=== PATIENT | male | born 1935 | race Asian ===

== ENCOUNTER 2022-11-16 14:00 | Outpatient (RCR) | payer MEDICARE, SELFPAY ==
[2022-10-02 11:01] VITALS: BP 140/78
--- NOTE | 2022-10-02 12:15 | MHC.PT.EP ---
[facility] [place] Office [place] Office [place] Office [address] Gurdeep Oseguera [address] [phone] F: [phone] F: [phone] F: [phone] F: [phone] Physical Therapy Plan of Care Date of Evaluation: Date of Surgery: Diagnosis: L RTC impingement Assessment: Pt is an R-hand dominant 87 y/o male with PMH significant for HTN and a thoracic compression fracture presenting to the clinic with a script for L RC impingement syndrome. His main compliant is occasional electric shock and spasms of L UE. S/s consistent with occasional impingement as a result of posture. He reports minimal difficulty with carrying, lifting, and maintaining static postures secondary to decreased strength of scapular stabilizers and impaired posture. Recommend PT 1x/week for 4 weeks to address impairments, implement HEP, and optimize functional mobility. Frequency and Duration: The patient will be seen 1x/wk x4wk Short Term Goals: Initiate HEP Pt will demonstrate improved static sitting posture without cues >50% of the time Penitentiary Goals: [place] with HEP Improve SPADI outcome measure score by at least 13 points; initial: 41/130 Pt will report decreased in L UE spasms by >50% per pt report Treatment Plan: Modalities to reduce pain, spasms and effusion. Manual therapy to restore motion and function. Therapeutic exercise to improve strength and flexibility. Neuromuscular re-education for posture and balance. Therapeutic activities to return to functional activities of daily living. Electronically signed by: Gisel Mercado PT Please sign and return to therapist. Thank you for your referral.
--- NOTE | 2022-11-16 14:39 | MHC.PT.DC ---
[facility] [place] Office [place] Office [place] Office [address] Oseguera [address] [phone] F: [phone] F: [phone] F: [phone] F: [phone] Physical Therapy Discharge Report Diagnosis: L RTC impingement Date of Surgery: Date of Evaluation: 10/02/22 Date of Discharge: 11/16/22 Treatments to Date: 4 Cancellations to Date: 0 No Shows to Date: 0 Discharge Status: Improved Function Independent with HEP Discharge Summary: Pt reports feeling better overall with less spasms/ electric shock sensations. He demonstrates improved L shoulder strength and is I with HEP. We reviewed HEP and no further questions at this time. Electronically signed by: iGsel Mercado PT Please sign and return to therapist. Thank you for your referral.
== END 2022-11-16 14:39 | disposition home or self-care (01) ==
LOC: HO.PTCHIC 14:00
PROVIDERS: PCP Internal Medicine; Visit Provider Internal Medicine
DX: M75.42 Impingement syndrome of left shoulder (principal)
CPT/HCPCS: 97110; 97162

== ENCOUNTER → 2023-01-22 12:43 | Outpatient (REF) | payer MEDICARE, SELFPAY ==
--- NOTE | 2023-01-22 12:46 | CA_ITS ---
Transthoracic Echocardiogram Patient (Last, First, Middle): Nickolas Frias Van Gender: Male Date of : 1935 Age: 87 Procedure Date: 01/22/2023 Procedure Type: Transthoracic Echocardiogram Location: OP Height: 162.56 cm Weight: 56.25 kg BSA: 1.60 m2 Heart Rate: 60 bpm BP: 138 / 64 mmHg Customer Service Agent: MARIAM/VENKATA Referring MD: Puma Gay MD Symptoms: I77.810 - Thoracic aortic ectasia Study Quality: Adequate ECG Rhythm: Sinus Conclusions: - The left ventricular systolic function is normal. The calculated ejection fraction is 66% by biplane method. - No obvious valvular pathology seen on this study. - There is mild dilatation of the ascending aorta measuring 4.30 cm. Findings Left Ventricle Normal left ventricular cavity size. The left ventricular systolic function is normal. The calculated ejection fraction is 66% by biplane method. There is no evidence of regional wall motion abnormalities. Diastolic function is normal for age. There is mild septal asymmetric hypertrophy. LV peak GLS 15.7%. Right Ventricle Normal right ventricular cavity size and systolic function. Atria Both atria are normal in size. Aortic Valve There is a normal trileaflet aortic valve. There is no aortic valve stenosis. There is mild aortic valve regurgitation. Mitral Valve The mitral valve appears normal. There is trace mitral valve regurgitation. There is no mitral valve stenosis. Pulmonic Valve The pulmonic valve is likely normal. Tricuspid Valve Normal tricuspid valve structure. There is mild tricuspid valve regurgitation. There is no evidence of pulmonary hypertension. Great Vessels The aortic annulus is normal in size. There is mild dilatation of the ascending aorta measuring 4.30 cm. Venous The inferior vena cava is normal in size and collapses greater than 50% with inspiration. Pericardium/Pleural There is no evidence of pericardial effusion. Prior Study Comparison Changes noted compared to prior study dated: 09/23/2021. Increase in ascending aortic size. Recommendations, Care & Conclusions No obvious valvular pathology seen on this study. Measurements 2D Linear Measurements IVSd: 1.25 0.6-0.9/0.6-1.0 cm LVIDd: 3.74 3.9-5.3/4.2-5.9 cm LVIDd Index: 2.34 2.4-3.2/2.2-3.1 cm/m2 LVIDs: 2.50 2.0-3.6 cm LVPWd: 0.80 0.7-1.1 cm LA Diam: 3.20 2.7-3.8/3.0-4.0 cm LAIDs Index: 2.00 1.5-2.3 cm/m2 LV Mass: 147.36 67-162/88-224 g LV Mass Index: 92.10 43-95/49-115 g/m2 LVOT Diam: 2.10 3.0+(-)1.3 cm 2D Systolic Function EF 4C: 64.60 >55% EF 2C: 63.70 >55% EF BiP: 66.00 >55% Mitral Valve MV Pk E: 0.48 MV PK A: 0.58 MV Decel Time: 361.00 E/A: 0.80 E'Lateral: 7.40 E'Medial: 4.90 E/E' Med: 9.70 E/E' Lat: 6.40 PHT: 106.00 MVA PHT: 2.08 Decel Traill: 1.32 Aortic Valve AoV Pk Titi: 1.18 AoV Pk Grad: 6.00 CURTIS: 2.68 AI Pk Titi: 4.57 AI Traill: 2.10 LVOT LVOT Pk Titi: 0.91 LVOT Mn Titi: 0.66 LVOT VTI: 0.20 LVOT Pk Grad: 3.00 LVOT Mn Grad: 2.00 LVOT Diam: 2.10 LVOT Area: 3.46 Diastolic Function MV Pk E: 0.48 MV Pk A: 0.58 E/A: 0.80 E'Medial: 4.90 E/E' Med: 9.70 E' Laterial: 7.40 E/E' Lat: 6.40 Right Ventricle TAPSE (mm): 22.80 TVS' Titi: 12.10 Tricuspid Valve TR Pk Titi: 2.34 TR Pk Grad: 22.00 RA Press: 3.00 RVSP: 25.00 Great Vessels Aorta Sinus of Valsalva: 3.30 2.0-3.5 cm Ao Asc: 4.30 2.1-3.4 cm Pulmonary Valve PV Pk Titi: 0.77 Peak PV Grad: 2.00 Updated in Other Vendor System with Status of Final Dejon Sepulveda MD electronically signed on 01/24/2023 9:11:48 AM with status of Final
== END ==
LOC: HO.CARD 12:43
PROVIDERS: PCP Internal Medicine; Visit Provider Internal Medicine Cardiovascular Disease
DX: I77.810 Thoracic aortic ectasia (principal)
CPT/HCPCS: 93306; 93356

== ENCOUNTER → 2023-01-22 12:46 | Outpatient (BNV) | payer MEDICARE, SELFPAY | PROVIDERS: PCP Internal Medicine; Visit Provider Internal Medicine | DX: I36.1 Nonrheumatic tricuspid (valve) insufficiency (principal); I77.810 Thoracic aortic ectasia | CPT/HCPCS: 93306 ==

== ENCOUNTER 2023-01-28 10:28 | Outpatient (AMB) | payer MEDICARE, SELFPAY ==
[2023-01-28 10:30] VITALS: BP 130/72; PULSE 64; BMI 21.1
--- NOTE | 2023-01-28 10:30 | A.OFFVIS_ITS ---
Intake Vital Signs 01/28/23 10:30 Height 5 ft 4 in Weight 123 lb 0.287 oz BMI 21.1 BP 130/72 Blood Pressure Location Lt brachial Position Sitting Pulse 64 Pulse Source Pulse Oximeter Intake Visit Reasons: 6 mth f/up echo Regulatory And Compliance Technician: Regulatory And Compliance Technician Present Allergies penicillin G [Penicillin G] Allergy (Mild, Verified 01/28/23 10:33) DIFFICULTY BREATHING Medication List - Last Reconciled 01/28/23 by Joann Leone, BELÉN-C [transfer chair As directed] acetaminophen (Tylenol Extra Strength) 500 mg PO Q6H PRN allopurinol 200 mg (2 x 100 mg) PO DAILY aspirin 81 mg PO DAILY atorvastatin 40 mg PO BEDTIME finasteride 5 mg PO DAILY 90 days isosorbide mononitrate ER 30 mg PO DAILY metoprolol succinate ER 25 mg PO DAILY oxycodone-acetaminophen 5-325 mg 1 tab PO TID PRN pantoprazole 40 mg PO DAILY HPI 6 mth f/up echo HPI Details Nickolas Tracey is an 87-year-old male with past medical history of hyperte nsion, hyperlipidemia, chronic kidney disease, coronary artery disease, dilated ascending aorta who presents for follow-up after recent echocardiogram. Today he reports he has been doing well since his last visit in July. He denies any chest discomfort at rest or with activity. No shortness of breath, PND, orthopnea or edema. No heart palpitations, presyncope, syncope, falls. Taking all meds as directed. Does light physical activity. Family member present. Ukrainian-speaking. [facility]LY [facility] Medical History Anal lesion Left renal stone Pulmonary nodule Chondrocalcinosis Cholelithiasis Hypercholesterolemia Hypertension Compression fx, thoracic spine Anemia BPH (benign prostatic hyperplasia) GERD (gastroesophageal reflux disease) Chronic kidney disease (CKD) stage G3a/A1, moderately decreased glomerular filtration rate (GFR) between 45-59 mL/min/1.73 square meter and albuminuria creatinine ratio less than 30 mg/g Chronic kidney disease Gout Surgical History History of cataract surgery Family History Father No problems noted. Mother No problems noted. Social History Housing: House Alcohol intake: never Patient Tobacco Use Status: Former Tobacco user Quit Date: July 2021 Tobacco use type: Cigarette e-Cigarette/Vaping Use: Never Used Second Hand Smoke Exposure: No Current occupational status: retired Current occupational exposures/hazards: No Cognitive needs: No Hearing needs: No Vision needs: No Review of Systems Const All systems reviewed & are unremarkable except as noted in HPI and below ENT Denies dizziness Card Denies chest pain, Denies chest pain at rest, Denies chest pain with activity, Denies rapid heart rate, Denies pedal edema, Denies edema, Denies leg edema, Denies lightheadedness, Denies palpitations, Denies dyspnea, Denies dyspnea on exertion and Denies orthopnea Resp Denies cough, Denies dyspnea and Denies dyspnea on exertion GI Denies hematochezia and Denies change in stool character Musc Details: knee pain, left Denies abnormal gait, Reports limited range of motion, Denies muscle cramps, Denies muscle weakness, Denies numbness, Denies radiating pain into limb, Denies stiffness and Denies tingling Neuro Denies abnormal gait, Denies dizziness, Denies numbness and Denies tingling Endo Denies palpitations Physical Exam Vital Signs: Last Vital Signs Pulse 64 01/28/23 10:30 BP 130/72 01/28/23 10:30 BMI result Body Mass Index 21.1 Const General: cooperative, healthy appearing, comfortable and no acute distress Orientation/consciousness: patient oriented x3 Neck Neck: Yes normal visual inspection Resp Effort & Inspection: normal respiratory effort Auscultation: clear to auscultation bilaterally, no crackles, no rales, no rhonchi and no wheezes Cardio Jugular venous distension: no JVD Rate: regular rate Rhythm: regular rhythm Heart sounds: S1 normal heart sound present, S2 normal heart sound present, no murmurs and no rubs Neuro General: patient oriented x3 Extrem General: Yes normal to inspection Psych Appearance: grossly normal Mental Status: mental status grossly normal Speech and movement: Normal speech and movement present Assessment & Plan Assessment & Plan (1) Coronary artery disease: Comment: November 2021 moderate stenosis LAD severe stenosis 1st diagonal Code(s): I25.10 - Atherosclerotic heart disease of [place] coronary artery without angina pectoris Plan: Known history of CAD. Condition stable with no reports of anginal sounding symptoms. Cardiac risk factors of hypertension, hyperlipidemia and advanced age. Echocardiogram done 01/22/2023 showing EF 63%, no valve abnormalities, no regional wall motion abnormality, ascending aorta 4.3 cm. Continue on aspirin indefinitely. Continue atorvastatin with ideal LDL goal less than 70. Continue isosorbide and metoprolol XL. Emergency care if ever needed for symptoms. Cardiology follow-up in 6 months, sooner if needed (2) Ascending aorta dilatation: Comment: November 2021 4.1 x 4 cm Code(s): I77.810 - Thoracic aortic ectasia Plan: Echocardiogram done 09/23/2021 shows ascending aorta 4 cm. Echocardiogram done 01/22/2023 shows ascending aorta 4.3 cm. Patient informed. Blood pressure is well controlled. Reviewed with Dr. Gay. Plan for repeat echocardiogram in 1 year, will place order. (3) Hypertension: Code(s): I10 - Essential (primary) hypertension Qualifiers: Hypertension type: essential hypertension Qualified Code(s): I10 - Essential (primary) hypertension Plan: Well controlled at present. No med changes made. Continue isosorbide and metoprolol (4) Hypercholesterolemia: Code(s): E78.00 - Pure hypercholesterolemia, unspecified Plan: [place] LDL goal less than 70 in patient with known history of CAD. Labs done 07/09/2022 showed LDL 87. Prior test had shown LDL 74. Near goal. Instructed on low fat diet and activity as tolerated. He does have issues with joint pain from arthritis. Continue atorvastatin. Plan Time spent on chart review, documentation, interview assess Coding Level of Care Code Est Pt Level 3 (34902) Diagnoses Coronary artery disease I25.10 Ascending aorta dilatation I77.810 Essential hypertension I10 Hypertension type: essential hypertension Hypercholesterolemia E78.00 Time Spent (min) 24
== END 2023-01-28 10:54 | disposition home or self-care (01) ==
PROVIDERS: PCP Internal Medicine; Visit Provider Nurse Practitioner Family
DX: I25.10 Atherosclerotic heart disease of native coronary artery without angina pectoris (principal); I77.810 Thoracic aortic ectasia; I10 Essential (primary) hypertension; E78.00 Pure hypercholesterolemia, unspecified
CPT/HCPCS: 99213

== ENCOUNTER → 2023-01-28 10:28 | Outpatient (BNVA) | payer MEDICARE, SELFPAY | PROVIDERS: PCP Internal Medicine; Visit Provider Nurse Practitioner Family | DX: I25.10 Atherosclerotic heart disease of native coronary artery without angina pectoris (principal); I77.810 Thoracic aortic ectasia; I10 Essential (primary) hypertension; E78.00 Pure hypercholesterolemia, unspecified | CPT/HCPCS: 99212 ==

== ENCOUNTER 2023-02-22 10:29 | Outpatient (AMB) | payer MEDICARE, SELFPAY ==
--- NOTE | 2023-02-22 10:31 | MHC.PC.OV ---
Vital Signs 02/22/23 10:32 Height 5 ft 4 in Weight 120 lb BMI 20.6 BP 126/72 Blood Pressure Location Lt brachial Position Sitting Pulse 66 Pulse Source Pulse Oximeter Pulse Oximetry (%) 95 Oxygen Delivery Method Room Air Intake Visit Reasons: 3 month f/u Allergies penicillin G [Penicillin G] Allergy (Mild, Verified 02/22/23 10:34) DIFFICULTY BREATHING Medication List - Last Reconciled 02/22/23 by Samantha Urbina MD [transfer chair As directed] acetaminophen (Tylenol Extra Strength) 500 mg PO Q6H PRN allopurinol 200 mg (2 x 100 mg) PO DAILY aspirin 81 mg PO DAILY atorvastatin 40 mg PO BEDTIME finasteride 5 mg PO DAILY 90 days isosorbide mononitrate ER 30 mg PO DAILY metoprolol succinate ER 25 mg PO DAILY oxycodone-acetaminophen 5-325 mg 1 tab PO TID PRN pantoprazole 40 mg PO DAILY Tobacco use date assessed: 02/22/23 Fall risk assessment: No Falls in past year Last assessed Fall Risk: 02/22/23 Dental Screening Dental Screen Date: 02/22/23 HPI 3 month f/u HPI Details 87-year-old male with a history of thoracic spine compression fracture on narcotic pain medication has hypertension GERD BPH gout osteoporosis chronic kidney disease and ascending aorta dilatation last seen in October 2022. Patient is here for follow-up. Patient has seen Cardiology 01/28/2023 follow-up echocardiogram January 2023 echocardiogram showing EF 63% no valve abnormalities ascending aorta 4.3 cm. blood work not done yet. hx of years L leg trauma intemittent pain and concern about this and wants xray. discussed aobut vaccine PFSH Medical History Anal lesion Left renal stone Pulmonary nodule Chondrocalcinosis Cholelithiasis Hypercholesterolemia Hypertension Compression fx, thoracic spine Anemia BPH (benign prostatic hyperplasia) GERD (gastroesophageal reflux disease) Chronic kidney disease (CKD) stage G3a/A1, moderately decreased glomerular filtration rate (GFR) between 45-59 mL/min/1.73 square meter and albuminuria creatinine ratio less than 30 mg/g Chronic kidney disease Gout Surgical History History of cataract surgery Family History Father No problems noted. Mother No problems noted. Social History Housing: House Alcohol intake: never Patient Tobacco Use Status: Former Tobacco user Quit Date: July 2021 Tobacco use type: Cigarette e-Cigarette/Vaping Use: Never Used Second Hand Smoke Exposure: No Current occupational status: retired Current occupational exposures/hazards: No Cognitive needs: No Hearing needs: No Vision needs: No Questionnaire Thrive Questionnaire Date Thrive assessed: 03/09/22 AUDIT C Alcohol Use Questionnaire (AUDIT-C) 1. How often do you have a drink containing alcohol?: Never 2. How many drinks containing alcohol do you have on a typical day when you are drinking?: 1 or 2 (0) 3. How often do you have six or more drinks on one occasion?: Never Total Score: 0 BELÉN-7 AMB Questionnaire BELÉN-7 Date BELÉN - 7 assessed: 02/22/23 Source: Developed by Drs. Emory Hutchison, Zina Kumar, Placido Haynes and colleagues, with an educational from [employer]. Physical exam (Primary Care) Vital Signs: Last Vital Signs Pulse 66 02/22/23 10:32 BP 126/72 02/22/23 10:32 Pulse Ox 95 02/22/23 10:32 Oxygen Delivery Method Room Air 02/22/23 10:32 BMI result Body Mass Index 20.6 Tobacco/Smoking Status: Tobacco use Status Tobacco use date assessed 02/22/23 02/22/23 10:35 Patient Tobacco Use Status Former Tobacco user 02/22/23 10:35 Tobacco use type Cigarette 02/22/23 10:35 e-Cigarette/Vaping Use Never Used 02/22/23 10:35 Thrive Assessment: Date of Thrive Assessment Date Thrive assessed 03/09/22 02/22/23 10:35 Const General: alert; No acute distress Eyes Conjunctivae: conjunctivae normal Resp Auscultation: clear to auscultation bilaterally Cardio Rate: regular rate Rhythm: regular rhythm GI Inspection: Yes normal to inspection Extrem General: Yes normal to inspection and No edema Office Procedures Flu Questionnaire Does the patient have a severe egg allergy?: No Does the patient have severe life threatening allergies?: No Does the patient have a fever or illness today?: No Has the patient ever had Guillain-[place] Syndrome?: No Has the patient ever had any past reaction to a flu shot?: No Immunizations flu vacc [id number] 6mos up(PF) 60 mcg(15 mcgx4)/0.5 mL IM syringe Performing Provider: Samantha Urbina MD Performing Location: [facility] Administered by: COMFORT Justice on 02/22/23 10:59 Dose Route Admin Location Dispensed Lot Number Expiration Date NDC Dough Sheeter 0.5 mL IM Left Deltoid 0.5 mL [id number] 08/15/23 [id number] [employer] VIS Given Date VIS Provided VIS Publication Date 02/22/23 Single Vaccine 20 Eligibility Eligibility Date Funding Source Not [facility] Eligible 02/22/23 Private Assessment and Plan Assessment & Plan (1) Hypertension: Code(s): I10 - Essential (primary) hypertension Qualifiers: Hypertension type: essential hypertension Qualified Code(s): I10 - Essential (primary) hypertension Plan: Continue with blood pressure medication. Decrease salt intake and exercise patient taking metoprolol 25 mg once a day (2) Hypercholesterolemia: Code(s): E78.00 - Pure hypercholesterolemia, unspecified Plan: Avoid fried foods, chicken skin, eggs, butter margarine, pastries and meat. Be it pork or beef they have a lot of cholesterol LDL goal of less than 70 patient on atorvastatin June blood work showing 87 (3) Coronary artery disease: Comment: November 2021 moderate stenosis LAD severe stenosis 1st diagonal Code(s): I25.10 - Atherosclerotic heart disease of [place] coronary artery without angina pectoris Plan: Control the cholesterol, weight, blood pressure, continue with aspirin. Patient follows up with Cardiology (4) Ascending aorta dilatation: Comment: November 2021 4.1 x 4 cm, January 2023 4.3 cm Code(s): I77.810 - Thoracic aortic ectasia Plan: January 2023 echocardiogram continues to monitor (5) Chronic kidney disease, stage 3b: Code(s): N18.32 - Chronic kidney disease, stage 3b Plan: Keep well hydrated avoid NSAIDs (6) Compression fx, thoracic spine: Comment: T12 compression fracture 2012 MRI Code(s): S22.000A - Wedge compression fracture of unspecified thoracic vertebra, initial encounter for closed fracture Qualifiers: Encounter type: subsequent encounter Fracture healing: with routine healing Thoracic vertebra fracture level: T12 Qualified Code(s): S22.080D - Wedge compression fracture of T11-T12 vertebra, subsequent encounter for fracture with routine healing Plan: Narcotic pain meds: Is being prescribed with the understanding that these medications are potentially addictive and should be used only when absolutely necessary and must always be secured. Any remaining pills should be safely disposed off appropriately. Patient is advised that narcotics can impaired judgment and one should not drive or operate heavy machinery while taking these medications. Never share these medications with anybody and do not leave them unattended. They will not be replaced under any circumstances. (7) GERD (gastroesophageal reflux disease): Code(s): K21.9 - Gastro-esophageal reflux disease without esophagitis Qualifiers: Esophagitis presence: without esophagitis Qualified Code(s): K21.9 - Gastro-esophageal reflux disease without esophagitis Plan: Avoid the foods that causes that usually spicy foods, tomato products, juices, coffee, soda and foods that your sensitive to. After eating do not lie down, allow 3-4 hours before in lie down. And keep the head of bed above 30 degrees to avoid the acid from going up. (8) BPH (benign prostatic hyperplasia): Code(s): N40.0 - Benign prostatic hyperplasia without lower urinary tract symptoms Qualifiers: Lower urinary tract symptom detail: urinary frequency Lower urinary tract symptom presence: symptoms present Qualified Code(s): N40.1 - Benign prostatic hyperplasia with lower urinary tract symptoms; R35.0 - Frequency of micturition Plan: Continue with finasteride 5 mg once a day (9) Gout: Code(s): M10.9 - Gout, unspecified Qualifiers: Chronicity: chronic Gout etiology: due to renal impairment Gout site: unspecified site Presence of tophus: with tophus Qualified Code(s): 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, unspecified site, with tophus (tophi) Plan: Keep well hydrated low purine diet (10) Leg pain, left: Code(s): M79.605 - Pain in left leg Orders: Orders XR tibia fibula LT 2V Today M79.605 - Pain in left leg Influenza [id number] Immunization Today Z23 - Encounter for immunization Coding Level of Care Code Est Pt Level 4 (57124) Diagnoses Essential hypertension I10 Hypertension type: essential hypertension Hypercholesterolemia E78.00 Coronary artery disease I25.10 Ascending aorta dilatation I77.810 Chronic kidney disease, stage 3b N18.32 Compression fracture of T12 vertebra with routine healing, subsequent encounter S22.080D Encounter type: subsequent encounter Fracture healing: with routine healing Thoracic vertebra fracture level: T12 Gastroesophageal reflux disease without esophagitis K21.9 Esophagitis presence: without esophagitis Benign prostatic hyperplasia with urinary frequency N40.1; R35.0 Lower urinary tract symptom detail: urinary frequency Lower urinary tract symptom presence: symptoms present 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
[2023-02-22 10:32] VITALS: BP 126/72; PULSE 66; O2SAT 95; BMI 20.6
== END 2023-02-22 11:01 | disposition home or self-care (01) ==
PROVIDERS: PCP Internal Medicine; Visit Provider Internal Medicine
DX: Z23 Encounter for immunization (principal); I12.9 Hypertensive chronic kidney disease with stage 1 through stage 4 chronic kidney disease, or unspecified chronic kidney disease; N18.32 Chronic kidney disease, stage 3b; I25.10 Atherosclerotic heart disease of native coronary artery without angina pectoris; I77.810 Thoracic aortic ectasia; S22.080D Wedge compression fracture of T11-T12 vertebra, subsequent encounter for fracture with routine healing; K21.9 Gastro-esophageal reflux disease without esophagitis; N40.1 Benign prostatic hyperplasia with lower urinary tract symptoms; R35.0 Frequency of micturition; M1A.30X1 Chronic gout due to renal impairment, unspecified site, with tophus (tophi); M79.605 Pain in left leg
CPT/HCPCS: 90471; 90686; 99214

== ENCOUNTER 2023-04-09 10:22 | Outpatient (REF) | payer MEDICARE, SELFPAY ==
--- NOTE | ~2023-04-09 | XR_ITS ---
EXAMINATION: XR TIBIA AND FIBULA, LEFT CLINICAL INFORMATION: Pain in left leg. COMPARISON: 03/23/2019. TECHNIQUE: AP and lateral views of the left tibia and fibula were obtained. FINDINGS: The bones are diffusely demineralized. Interval progression of degenerative changes on limited views of the knee with chondrocalcinosis and joint space narrowing. Radiopaque marker placed indicating the area of concern according to patient along the mid aspect of the leg and no displaced fracture is indicated in this region at the level of the mid tibia/fibula. Degenerative changes on limited views of the ankle. Calcifications in the soft tissues adjacent to the ankle may be chronic/degenerative in nature as well as vascular, but if there is concern for fracture or other pathology, then dedicated views of the ankle should be obtained. XR/XR tibia fibula LT 2V IMPRESSION: 1. Interval progression of degenerative changes on limited views of the knee with medial and lateral chondrocalcinosis and joint space narrowing. 2. Calcifications in the soft tissues adjacent to the ankle may be chronic/degenerative in nature as well as vascular, but if there is concern for fracture or other pathology, then dedicated views of the ankle should be obtained. 3. No gross displaced fracture along the area of concern indicated by the patient at the mid leg. 4. Additional imaging with CT scan could be considered if there is clinical concern for fracture or other underlying pathology.
[2023-04-09 10:41] LABS: MANUAL DIFF FLAG NO
[2023-04-09 11:12] LABS: Basophils Absolute Auto 0.1 X10*3/uL (0.0-0.2); Basophils Percent Auto 0.7 % (0-2); Eosinophils Absolute Auto 0.3 X10*3/uL (0.0-0.4); Eosinophils Percent Auto 4.9 % (0-4); Hematocrit 33.8 % (42.0-52.0); Hemoglobin 10.9 g/dl (14.0-18.0); Imm Gran Abs Auto 0.02 X10*3/uL (0.00-0.03); Imm Gran Pct Auto 0.3 % (0.0-0.4); Lymphocytes Absolute Auto 2.2 X10*3/uL (1.2-4.9); Mean Corpuscular HGB Conc 32.2 g/dl (31.0-36.0); Mean Corpuscular Hemoglobin 20.2 pg (27.0-33.0); Mean Corpuscular Volume 62.6 fL (80.0-98.0); Monocytes Absolute Auto 0.6 X10*3/uL (0.1-1.2); Monocytes Percent Auto 8.8 % (2-11); Neutrophils Absolute Auto 3.6 x10*3/uL (2.0-8.3); Neutrophils Percent Auto 53.3 % (45-73); Platelet Count 183 X10*3/uL (160-400); Red Cell Distribution Width 15.7 % (11.0-16.0); White Blood Count 6.7 X10*3/uL (4.8-10.8)
[2023-04-09 11:44] LABS: Alanine Aminotransferase 14 U/L (0-40); Alkaline Phosphatase 98 U/L (39-117); Anion Gap 14 (12-20); Aspartate Amino Transferase 26 U/L (5-37); Bilirubin Total 1.2 mg/dL (0.0-1.0); Blood Urea Nitrogen 17 mg/dL (9-16); Calcium 9.6 mg/dL (8.4-10.2); Carbon Dioxide 29 mmol/L (22-29); Chloride 105 mmol/L (96-108); Cholesterol 135 mg/dL (<200); Estimated Glomerular Filt Rate 52; Glucose Random 95 mg/dL (60-115); HDL Cholesterol 54 mg/dL (>40); LDL Cholesterol Calculated 68 mg/dL (<100); Potassium 4.6 mmol/L (3.3-5.1); Sodium 143 mmol/L (135-145); Total Protein 6.3 g/dL (6.5-8.0); Triglycerides 67 mg/dL (<150)
[2023-04-09 11:59] LABS: Vitamin D 25-OH Total 41.7 ng/mL (>30)
== END 2023-04-09 10:23 | disposition home or self-care (01) ==
LOC: HO.XRAY 10:22
PROVIDERS: PCP Internal Medicine; Visit Provider Internal Medicine
DX: I25.10 Atherosclerotic heart disease of native coronary artery without angina pectoris (principal); E78.00 Pure hypercholesterolemia, unspecified; M81.0 Age-related osteoporosis without current pathological fracture; M79.605 Pain in left leg
CPT/HCPCS: 36415; 73590; 80053; 80061; 82306; 85025

== ENCOUNTER 2023-05-24 15:23 | Outpatient (AMB) | payer MEDICARE, SELFPAY ==
[2023-05-24 15:01] VITALS: BP 130/72; PULSE 57; O2SAT 97; BMI 20.3
--- NOTE | 2023-05-24 15:01 | A.OFFPC_ITS ---
Vital Signs 05/24/23 15:01 Height 5 ft 4 in Weight 118 lb BMI 20.3 BP 130/72 Blood Pressure Location Lt brachial Position Sitting Pulse 57 Pulse Source Pulse Oximeter Pulse Oximetry (%) 97 Oxygen Delivery Method Room Air Intake Visit Reasons: Coronary artery disease Patient Biller Required: No Allergies penicillin G [Penicillin G] Allergy (Mild, Verified 05/24/23 15:01) DIFFICULTY BREATHING Tobacco use date assessed: 05/24/23 Fall risk assessment: No Falls in past year Last assessed Fall Risk: 05/24/23 Dental Screening Dental Screen Date: 02/22/23 HPI Coronary artery disease HPI Details 88-year-old male with hypertension, hype rcholesterolemia, 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 Last seen in February 2023. [facility] Medical History Anal lesion Left renal stone Pulmonary nodule Chondrocalcinosis Cholelithiasis Hypercholesterolemia Hypertension Compression fx, thoracic spine Anemia BPH (benign prostatic hyperplasia) GERD (gastroesophageal reflux disease) Chronic kidney disease (CKD) stage G3a/A1, moderately decreased glomerular filtration rate (GFR) between 45-59 mL/min/1.73 square meter and albuminuria creatinine ratio less than 30 mg/g Chronic kidney disease Gout Surgical History History of cataract surgery Family History Father No problems noted. Mother No problems noted. Social History Housing: House Alcohol intake: never Patient Tobacco Use Status: Former Tobacco user Quit Date: July 2021 Tobacco use type: Cigarette e-Cigarette/Vaping Use: Never Used Second Hand Smoke Exposure: No Current occupational status: retired Current occupational exposures/hazards: No Cognitive needs: No Hearing needs: No Vision needs: No Questionnaire Thrive Questionnaire Date Thrive assessed: 03/09/22 AUDIT C Alcohol Use Questionnaire (AUDIT-C) 1. How often do you have a drink containing alcohol?: Never 2. How many drinks containing alcohol do you have on a typical day when you are drinking?: 1 or 2 (0) 3. How often do you have six or more drinks on one occasion?: Never Total Score: 0 BELÉN-7 AMB Questionnaire BELÉN-7 Date BELÉN - 7 assessed: 02/22/23 Source: Developed by Drs. Emory Hutchison, Zina Kumar, Placido Haynes and colleagues, with an educational from [employer]. Physical exam (Primary Care) Vital Signs: Last Vital Signs Pulse 57 05/24/23 15:01 BP 130/72 05/24/23 15:01 Pulse Ox 97 05/24/23 15:01 Oxygen Delivery Method Room Air 05/24/23 15:01 BMI result Body Mass Index 20.3 Tobacco/Smoking Status: Tobacco use Status Tobacco use date assessed 05/24/23 05/24/23 15:02 Patient Tobacco Use Status Former Tobacco user 05/24/23 15:02 Tobacco use type Cigarette 05/24/23 15:02 e-Cigarette/Vaping Use Never Used 05/24/23 15:02 Thrive Assessment: Date of Thrive Assessment Date Thrive assessed 03/09/22 05/24/23 15:02 Const General: alert; No acute distress Eyes Conjunctivae: conjunctivae normal Resp Auscultation: clear to auscultation bilaterally Cardio Rate: regular rate Rhythm: regular rhythm GI Inspection: Yes normal to inspection Extrem General: Yes normal to inspection and No edema Assessment and Plan Assessment & Plan (1) Compression fx, thoracic spine: Comment: T12 compression fracture 2012 MRI Code(s): S22.000A - Wedge compression fracture of unspecified thoracic vertebra, initial encounter for closed fracture Qualifiers: Encounter type: subsequent encounter Thoracic vertebra fracture level: T12 Fracture healing: with routine healing Qualified Code(s): S22.080D - Wedge compression fracture of T11-T12 vertebra, subsequent encounter for fracture with routine healing Plan: Narcotic pain meds: Is being prescribed with the understanding that these medications are potentially addictive and should be used only when absolutely necessary and must always be secured. Any remaining pills should be safely disposed off appropriately. Patient is advised that narcotics can impaired judgment and one should not drive or operate heavy machinery while taking these medications. Never share these medications with anybody and do not leave them unattended. They will not be replaced under any circumstances. (2) Hypertension: Code(s): I10 - Essential (primary) hypertension Qualifiers: Hypertension type: essential hypertension Qualified Code(s): I10 - Essential (primary) hypertension Plan: Continue with blood pressure medication. Decrease salt intake and exercise on metoprolol 25 mg once a day (3) Hypercholesterolemia: Code(s): E78.00 - Pure hypercholesterolemia, unspecified Plan: Avoid fried foods, chicken skin, eggs, butter margarine, pastries and meat. Be it pork or beef they have a lot of cholesterol atorvastatin 40 mg once a day March 2023 last blood work (4) BPH (benign prostatic hyperplasia): Code(s): N40.0 - Benign prostatic hyperplasia without lower urinary tract symptoms Qualifiers: Lower urinary tract symptom presence: symptoms present Lower urinary tract symptom detail: urinary frequency Qualified Code(s): N40.1 - Benign prostatic hyperplasia with lower urinary tract symptoms; R35.0 - Frequency of micturition Plan: Continue with finasteride 5 mg once a day (5) GERD (gastroesophageal reflux disease): Code(s): K21.9 - Gastro-esophageal reflux disease without esophagitis Qualifiers: Esophagitis presence: without esophagitis Qualified Code(s): K21.9 - Gastro-esophageal reflux disease without esophagitis Plan: Avoid the foods that causes that usually spicy foods, tomato products, juices, coffee, soda and foods that your sensitive to. After eating do not lie down, allow 3-4 hours before in lie down. And keep the head of bed above 30 degrees to avoid the acid from going up. (6) Coronary artery disease: Comment: November 2021 moderate stenosis LAD severe stenosis 1st diagonal Code(s): I25.10 - Atherosclerotic heart disease of [place] coronary artery without angina pectoris Plan: Control the cholesterol, weight, blood pressure continue with aspirin 81 mg once a day (7) Chronic kidney disease, stage 3b: Code(s): N18.32 - Chronic kidney disease, stage 3b Plan: Keep well hydrated avoid NSAIDs (8) Anemia: Code(s): D64.9 - Anemia, unspecified Orders: Orders 2 Complete Blood Count Auto Diff Today D64.9 - Anemia, unspecified Ferritin Today D64.9 - Anemia, unspecified IRON PROFILE Today D64.9 - Anemia, unspecified Reticulocyte Count Today D64.9 - Anemia, unspecified Vitamin B12 and Folate Today D64.9 - Anemia, unspecified Coding Level of Care Code Est Pt Level 4 (92689) Diagnoses Compression fracture of T12 vertebra with routine healing, subsequent encounter S22.080D Encounter type: subsequent encounter Thoracic vertebra fracture level: T12 Fracture healing: with routine healing Essential hypertension I10 Hypertension type: essential hypertension Hypercholesterolemia E78.00 Benign prostatic hyperplasia with urinary frequency N40.1; R35.0 Lower urinary tract symptom presence: symptoms present Lower urinary tract symptom detail: urinary frequency Gastroesophageal reflux disease without esophagitis K21.9 Esophagitis presence: without esophagitis Coronary artery disease I25.10 Chronic kidney disease, stage 3b N18.32 Anemia D64.9
== END 2023-05-24 16:19 | disposition home or self-care (01) ==
PROVIDERS: PCP Internal Medicine; Visit Provider Internal Medicine
DX: I25.10 Atherosclerotic heart disease of native coronary artery without angina pectoris (principal); S22.080D Wedge compression fracture of T11-T12 vertebra, subsequent encounter for fracture with routine healing; I12.9 Hypertensive chronic kidney disease with stage 1 through stage 4 chronic kidney disease, or unspecified chronic kidney disease; N18.32 Chronic kidney disease, stage 3b; E78.00 Pure hypercholesterolemia, unspecified; N40.1 Benign prostatic hyperplasia with lower urinary tract symptoms; R35.0 Frequency of micturition; K21.9 Gastro-esophageal reflux disease without esophagitis; D64.9 Anemia, unspecified
CPT/HCPCS: 99214

== ENCOUNTER 2023-07-06 13:13 | Outpatient (AMB) | payer MEDICARE, SELFPAY ==
--- NOTE | 2023-07-06 13:27 | MHC.OFFVIS ---
Intake Visit Reasons: 1Y PVR Intake Note: Patient is Present for PVR/ Urology Med: Finasteride Antibiotic Allergy:Pencillin Blood Thinner:None Last PVR: 0 Todays PVR: 0 Allergies penicillin G [Penicillin G] Allergy (Mild, Verified 05/24/23 15:01) DIFFICULTY BREATHING HPI Comments Details: Nickolas Tracey is a very pleasant [place] male. He is a patient of Dr Urbina. He is seen for the following urologic conditions. - lower urinary tract symptoms - nephrolithiasis Current PVR remains low Monotherapy finasteride Getting up 2-3 times at night Discussed possible addition of secondary medication At this point is on other medications and will plan for bladder ultrasound with review Will try and reduce fluid intake after 19:00 Lower Urinary Tract Symptoms: Current visit is for further symptom evaluation of, lower urinary tract symptoms, predominate obstructive symptoms. Current treatment includes finasteride - prior therapy tamsulosin with dizziness, prior alfuzosin which was effective Prostate Symptom Score 5/20 , Moderate (9-19), Bother 3. Symptoms include 5/20 , weak stream, nocturia (>2), and are progressing. Results from testing include uroflow was performed No transrectal ultrasound No renal/bladder us No Testing at next visit will include bladder scan and ultrasound Treatment plan continue with current medications. Nephrolithiasis Imaging - 11/05 renal ultrasound bilateral renal cysts up to 3.5 cm, bilateral small stones up to 4 mm [facility] Medical History (Updated 05/24/23 @ 15:54 by Samantha Urbina MD) Anal lesion Left renal stone Pulmonary nodule Chondrocalcinosis Cholelithiasis Hypercholesterolemia Hypertension Compression fx, thoracic spine Anemia BPH (benign prostatic hyperplasia) GERD (gastroesophageal reflux disease) Chronic kidney disease (CKD) stage G3a/A1, moderately decreased glomerular filtration rate (GFR) between 45-59 mL/min/1.73 square meter and albuminuria creatinine ratio less than 30 mg/g Chronic kidney disease Gout Surgical History History of cataract surgery Family History Father No problems noted. Mother No problems noted. Social History Housing: House Alcohol intake: never Patient Tobacco Use Status: Former Tobacco user Quit Date: July 2021 Tobacco use type: Cigarette e-Cigarette/Vaping Use: Never Used Second Hand Smoke Exposure: No Current occupational status: retired Current occupational exposures/hazards: No Cognitive needs: No Hearing needs: No Vision needs: No Review of Systems Const Denies chills and Denies fever(s) Card Reports no additional complaints and Denies syncope Resp Denies cough GI Denies abdominal pain and Denies heartburn Reports as per HPI and Denies change in libido Neuro Denies syncope Psych Denies change in libido Endo Denies change in libido Physical Exam Const General: cooperative, healthy appearing, comfortable and no acute distress Orientation/consciousness: patient oriented x3 HEENT Face and sinus: Yes normal facial exam Mouth: moist mucous membranes Neck Neck: Yes normal visual inspection, Yes full ROM and Yes trachea midline Chest Chest palpation & inspection: normal inspection of the chest Resp Effort & Inspection: normal respiratory effort, able to speak in complete sentences and no respiratory distress GI Inspection: Yes normal to inspection Back/Spine/Pelvis Cervical Spine: normal cervical lordosis Thoracic/Lumbar Spine: thoracic and lumbar spine normal to inspection Skin General skin exam: no rashes or lesions noted Neuro General: patient oriented x3, gait normal, tone normal and moves all extremities Extrem General: Yes normal to inspection and Yes capillary refill normal Office Procedures Post Void Residual Post Residual Void Post Void Residual (PVR): 0 [id number] Void Residual by ultrasound Assessment & Plan Assessment & Plan (1) Bilateral nephrolithiasis: Code(s): N20.0 - Calculus of kidney Category: Medical (2) Nocturia associated with benign prostatic hyperplasia: Code(s): N40.1 - Benign prostatic hyperplasia with lower urinary tract symptoms; R35.1 - Nocturia Category: Medical (3) BPH (benign prostatic hyperplasia): Code(s): N40.0 - Benign prostatic hyperplasia without lower urinary tract symptoms Category: Medical Qualifiers: Lower urinary tract symptom presence: symptoms present Lower urinary tract symptom detail: urinary frequency Qualified Code(s): N40.1 - Benign prostatic hyperplasia with lower urinary tract symptoms; R35.0 - Frequency of micturition Plan Six-month follow-up bladder ultrasound Orders: Orders US bladder Today N40.1 - Benign prostatic hyperplasia with lower urinary tract symptoms, R35.0 - Frequency of micturition, R39.12 - Poor urinary stream Prostate Specific Antigen 06/28/23 N40.1 - Benign prostatic hyperplasia with lower urinary tract symptoms, R35.0 - Frequency of micturition AMB Post Void Residual by ultrasound Today N40.1 - Benign prostatic hyperplasia with lower urinary tract symptoms, R35.0 - Frequency of micturition Patient Instructions: Imaging studies, laboratory and physical exam results were discussed and reviewed in detail. No major barriers to patient understanding were identified. An opportunity to ask questions regarding the treatment plan was provided. All questions were answered. The patient expressed understanding and agreement with the above treatment plan. The patient is aware they should contact our office by phone for worsening of their current condition or the appearance of new urologic symptoms. Compliance is encouraged with any medications and followup testing that is ordered. It is a privilege to participate in the urologic care of your patient. If you have any questions or concerns regarding treatment for the above conditions, or other urologic issues, please do not hesitate to contact me. The office telephone contact is [phone]. This note is constructed using voice recognition software. While every effort has been made to ensure accuracy senior software project manager errors may have been included. Yours sincerely, Dr Aramis Ruiz MD, [facility] - Urology Providers of Expert, Compassionate Care for the Genitourinary System Coding Level of Care Code Est Pt Level 4 (18905) Diagnoses Bilateral nephrolithiasis N20.0 Nocturia associated with benign prostatic hyperplasia N40.1; R35.1 Benign prostatic hyperplasia with urinary frequency N40.1; R35.0 Lower urinary tract symptom presence: symptoms present Lower urinary tract symptom detail: urinary frequency CPT Codes Post Residual Void - PVR CPT Code: [id number] Void Residual by ultrasound ([id number])
== END 2023-07-06 14:05 | disposition home or self-care (01) ==
PROVIDERS: Visit Provider Urology
DX: N20.0 Calculus of kidney (principal); N40.1 Benign prostatic hyperplasia with lower urinary tract symptoms; R35.1 Nocturia; R35.0 Frequency of micturition
CPT/HCPCS: 99214

== ENCOUNTER → 2023-07-06 13:13 | Outpatient (BNVA) | payer MEDICARE, SELFPAY | PROVIDERS: Visit Provider Urology | DX: N40.1 Benign prostatic hyperplasia with lower urinary tract symptoms (principal); R35.1 Nocturia; R35.0 Frequency of micturition; N20.0 Calculus of kidney | CPT/HCPCS: 51798; 99212 ==

== ENCOUNTER 2023-08-27 08:21 | Outpatient (AMB) | payer MEDICARE, SELFPAY ==
[2023-08-27 08:32] VITALS: BP 120/70; PULSE 65; BMI 19.7
--- NOTE | 2023-08-27 08:32 | MHC.OFFVIS ---
Vital Signs 08/27/23 08:32 Height 5 ft 4 in Weight 114 lb 10.246 oz BMI 19.7 BP 120/70 Blood Pressure Location Lt brachial Position Sitting Pulse 65 Intake Visit Reasons: 6 month follow up Intake Note: 6 month follow-up with ekg feeling good Account Services Coordinator: Account Services Coordinator Present Accompanied by: Daughter Allergies penicillin G [Penicillin G] Allergy (Mild, Verified 05/24/23 15:01) DIFFICULTY BREATHING Medication List - Last Reconciled 08/27/23 by Puma Gay MD [transfer chair As directed] acetaminophen (Tylenol Extra Strength) 500 mg PO Q6H PRN allopurinol 200 mg (2 x 100 mg) PO DAILY aspirin 81 mg PO DAILY atorvastatin 40 mg PO BEDTIME finasteride 5 mg PO DAILY 90 days isosorbide mononitrate ER 30 mg PO DAILY metoprolol succinate ER 25 mg PO DAILY oxycodone-acetaminophen 5-325 mg 1 tab PO TID PRN pantoprazole 40 mg PO DAILY HPI Comments Details: Nickolas Tracey comes for follow-up. He said he has been doing extremely well. He is currently able to function at his full list extent without any cardiac symptoms. 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 He denies any falls. Denies any exertional chest pain or shortness of breath at current level of activity. Denies any heart failure symptoms. Denies any lightheadedness, syncope. Denies any prolonged palpitation irregular heartbeat. Tolerating his medications well. [facility] Medical History Anal lesion Left renal stone Pulmonary nodule Chondrocalcinosis Cholelithiasis Hypercholesterolemia Hypertension Compression fx, thoracic spine Anemia BPH (benign prostatic hyperplasia) GERD (gastroesophageal reflux disease) Chronic kidney disease (CKD) stage G3a/A1, moderately decreased glomerular filtration rate (GFR) between 45-59 mL/min/1.73 square meter and albuminuria creatinine ratio less than 30 mg/g Chronic kidney disease Gout Surgical History History of cataract surgery Family History Father No problems noted. Mother No problems noted. Social History Housing: House Alcohol intake: never Patient Tobacco Use Status: Former Tobacco user Tobacco use type: Cigarette e-Cigarette/Vaping Use: Never Used Second Hand Smoke Exposure: No Current occupational status: retired Current occupational exposures/hazards: No Cognitive needs: No Hearing needs: No Vision needs: No Review of Systems Const Denies chills, Denies fatigue, Denies fever(s), Denies frequent falls, Denies weakness, Denies weight gain and Denies weight loss ENT Denies dizziness Card Denies chest pain, Denies leg edema, Denies lightheadedness, Denies palpitations, Denies dyspnea, Denies dyspnea on exertion, Denies orthopnea and Denies other (loss of consciousness) Resp Denies cough, Denies dyspnea and Denies dyspnea on exertion GI Denies hematochezia and Denies change in stool character Musc Denies abnormal gait, Denies muscle weakness, Denies numbness, Denies radiating pain into limb and Denies tingling Neuro Denies abnormal gait, Denies dizziness, Denies frequent falls, Denies numbness, Denies tingling and Denies weakness Endo Denies fatigue and Denies palpitations Physical Exam Vital Signs: Last Vital Signs Pulse 65 08/27/23 08:32 BP 120/70 08/27/23 08:32 BMI result Body Mass Index 19.7 Const General: cooperative, comfortable, no acute distress, alert and awake Orientation/consciousness: patient oriented x3 Neck Neck: Yes normal visual inspection Resp Effort & Inspection: normal respiratory effort Auscultation: clear to auscultation bilaterally, no crackles, no rales, no rhonchi and no wheezes Cardio Jugular venous distension: no JVD Rate: regular rate Rhythm: regular rhythm Heart sounds: S1 normal heart sound present, S2 normal heart sound present, no murmurs and no rubs Neuro General: patient oriented x3 and no focal motor deficits Extrem General: Yes normal to inspection Psych Appearance: grossly normal Mental Status: mental status grossly normal Speech and movement: Normal speech and movement present Office Procedures EKG Details: EKG shows normal sinus rhythm with first-degree AV block with moderate voltage criteria for LVH otherwise normal EKG [id number], Complete Assessment & Plan Assessment & Plan (1) Coronary artery disease: Comment: November 2021 moderate stenosis LAD severe stenosis 1st diagonal Code(s): I25.10 - Atherosclerotic heart disease of [place] coronary artery without angina pectoris Category: Medical Plan: Moderately severe LAD disease without any symptoms of angina on dual antianginal therapy. Continue current medical management including low-dose aspirin for life. Continue high-intensity statin therapy. Continue aggressive blood pressure control which is currently well optimized. Encouraged to maintain activity level as tolerated. Advised to call me with any new symptoms. 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 Has remained stable. Follow-up echocardiogram in 1 year's time. Advised to avoid sudden strenuous isometric exercise. Advise aggressive blood pressure control. Continue aggressive vascular risk factor modifications above. Will follow up in the clinic in 1 year's time, sooner p.r.n.. Thank you for allowing me to partake in his care Coding Level of Care Code Est Pt Level 4 (92988) Diagnoses Coronary artery disease I25.10 Ascending aorta dilatation I77.810 CPT Codes EKG - CPT: 26356-[id number], Complete ([id number])
== END 2023-08-27 08:59 | disposition home or self-care (01) ==
PROVIDERS: PCP Internal Medicine; Visit Provider Internal Medicine Cardiovascular Disease
DX: I25.10 Atherosclerotic heart disease of native coronary artery without angina pectoris (principal); I77.810 Thoracic aortic ectasia
CPT/HCPCS: 93010; 99214

== ENCOUNTER → 2023-08-27 08:21 | Outpatient (BNVA) | payer MEDICARE, SELFPAY | PROVIDERS: PCP Internal Medicine; Visit Provider Internal Medicine Cardiovascular Disease | DX: I25.10 Atherosclerotic heart disease of native coronary artery without angina pectoris (principal); I77.810 Thoracic aortic ectasia; I44.0 Atrioventricular block, first degree | CPT/HCPCS: 93005; 99212 ==

== ENCOUNTER 2023-09-09 13:31 | Outpatient (AMB) | payer MEDICARE, SELFPAY ==
--- NOTE | 2023-09-09 13:36 | A.OFFVIS_ITS ---
Vital Signs 09/09/23 13:37 Height 5 ft 4 in Weight 119 lb 0.794 oz BMI 20.4 BP 118/70 Blood Pressure Location Lt brachial Position Sitting Pulse 70 Pulse Source Pulse Oximeter Pulse Oximetry (%) 99 Oxygen Delivery Method Room Air Intake Visit Reasons: Gout Intake Note: Patient is here for gout today. Accompanied by: Spouse Allergies penicillin G [Penicillin G] Allergy (Mild, Verified 09/09/23 13:39) DIFFICULTY BREATHING Medication List - Last Reconciled 09/09/23 by Marcy Lucio MD [transfer chair As directed] acetaminophen (Tylenol Extra Strength) 500 mg PO Q6H PRN allopurinol 200 mg (2 x 100 mg) PO DAILY aspirin 81 mg PO DAILY atorvastatin 40 mg PO BEDTIME finasteride 5 mg PO DAILY 90 days isosorbide mononitrate ER 30 mg PO DAILY metoprolol succinate ER 25 mg PO DAILY oxycodone-acetaminophen 5-325 mg 1 tab PO TID PRN pantoprazole 40 mg PO DAILY HPI Comments Details: This is an 88-year-old male with gout who presents for follow-up. He presents with his . He remains on allopurinol 200 mg daily. Had any gout attacks in years. He states that he gets some achiness and stiffness of his toes, he wonders if it is related to gout. So gets knee steroid injections every 6 months or so. [facility] Medical History Anal lesion Left renal stone Pulmonary nodule Chondrocalcinosis Cholelithiasis Hypercholesterolemia Hypertension Compression fx, thoracic spine Anemia BPH (benign prostatic hyperplasia) GERD (gastroesophageal reflux disease) Chronic kidney disease (CKD) stage G3a/A1, moderately decreased glomerular filtration rate (GFR) between 45-59 mL/min/1.73 square meter and albuminuria creatinine ratio less than 30 mg/g Chronic kidney disease Gout Surgical History History of cataract surgery Family History Father No problems noted. Mother No problems noted. Social History Housing: House Alcohol intake: never Patient Tobacco Use Status: Former Tobacco user Tobacco use type: Cigarette e-Cigarette/Vaping Use: Never Used Second Hand Smoke Exposure: No Current occupational status: retired Current occupational exposures/hazards: No Cognitive needs: No Hearing needs: No Vision needs: No Review of Systems Musc Reports arthralgias, Denies joint swelling and Reports stiffness Physical Exam Vital Signs: Last Vital Signs Pulse 70 09/09/23 13:37 BP 118/70 09/09/23 13:37 Pulse Ox 99 09/09/23 13:37 Oxygen Delivery Method Room Air 09/09/23 13:37 BMI result Body Mass Index 20.4 Const General: cooperative, healthy appearing and comfortable Nutritional Appearance: average body habitus Orientation/consciousness: patient oriented x3 Limitations: no limitations HEENT Head: Yes normocephalic and Yes atraumatic Mouth: moist mucous membranes Resp Effort & Inspection: normal respiratory effort and able to speak in complete sentences Skin General skin exam: no rashes or lesions noted Neuro General: patient oriented x3 Extrem Other: Significant osteoarthritic changes of both hands with no active synovitis Normal range of motion elbows and shoulders without pain Infrequent osteoarthritic changes of his feet with prominent bilateral bunions Assessment & Plan Assessment & Plan (1) Gout: Code(s): M10.9 - Gout, unspecified Category: Medical Qualifiers: Gout site: unspecified site Gout etiology: due to renal impairment Chronicity: chronic Presence of tophus: with tophus Qualified Code(s): 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, unspecified site, with tophus (tophi) Plan: This is an 88-year-old male with gout who presents for follow-up. This is his 1st visit with me. He remains on allopurinol 200 mg a day without any gout flare-ups for years. Continue allopurinol 200 mg daily Check uric acid level today and before next visit in 6 months (2) Osteoarthritis of feet, bilateral: Code(s): M19.071 - Primary osteoarthritis, right ankle and foot; M19.072 - Primary osteoarthritis, left ankle and foot Category: Medical Qualifiers: Osteoarthritis type: primary Qualified Code(s): M19.071 - Primary osteoarthritis, right ankle and foot; M19.072 - Primary osteoarthritis, left ankle and foot Plan: Patient has achiness and stiffness of his feet which is likely related to bilateral feet osteoarthritis. Symptoms are mild.. Reassured patient that they are not related to gout Plan I spent 18 minutes reviewing patient's chart, evaluating patient, ordering diagnostic workup, counseling patient and documenting in the chart Orders: Orders Basic Metabolic Panel 6 Months 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, unspecified site, with tophus (tophi) Uric Acid 6 Months 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, unspecified site, with tophus (tophi) Basic Metabolic Panel Today 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, unspecified site, with tophus (tophi) Uric Acid Today 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, unspecified site, with tophus (tophi) Coding Level of Care Code Est Pt Level 3 (32549) Diagnoses 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
[2023-09-09 13:37] VITALS: BP 118/70; PULSE 70; O2SAT 99; BMI 20.4
== END 2023-09-09 14:07 | disposition home or self-care (01) ==
PROVIDERS: PCP Internal Medicine; Visit Provider Student in an Organized Health Care Education/Training Program
DX: M1A.30X1 Chronic gout due to renal impairment, unspecified site, with tophus (tophi) (principal); M19.071 Primary osteoarthritis, right ankle and foot; M19.072 Primary osteoarthritis, left ankle and foot
CPT/HCPCS: 99213

== ENCOUNTER → 2023-09-09 13:31 | Outpatient (BNVA) | payer MEDICARE, SELFPAY | PROVIDERS: PCP Internal Medicine; Visit Provider Student in an Organized Health Care Education/Training Program | DX: M1A.30X1 Chronic gout due to renal impairment, unspecified site, with tophus (tophi) (principal); I12.9 Hypertensive chronic kidney disease with stage 1 through stage 4 chronic kidney disease, or unspecified chronic kidney disease; N18.31 Chronic kidney disease, stage 3a; M19.072 Primary osteoarthritis, left ankle and foot; M19.071 Primary osteoarthritis, right ankle and foot | CPT/HCPCS: 99212 ==

== ENCOUNTER 2023-09-28 07:21 | Outpatient (REF) | payer MEDICARE, SELFPAY ==
[2023-09-28 07:42] LABS: MANUAL DIFF FLAG NO
[2023-09-28 08:23] LABS: Basophils Absolute Auto 0.1 X10*3/uL (0.0-0.2); Basophils Percent Auto 0.8 % (0-2); Eosinophils Absolute Auto 0.4 X10*3/uL (0.0-0.4); Eosinophils Percent Auto 6.6 % (0-4); Hematocrit 30.8 % (42.0-52.0); Hemoglobin 10.1 g/dl (14.0-18.0); Imm Gran Abs Auto 0.03 X10*3/uL (0.00-0.03); Imm Gran Pct Auto 0.5 % (0.0-0.4); Immature Retic Fraction 20.9 % (2.3-13.4); Lymphocytes Absolute Auto 1.5 X10*3/uL (1.2-4.9); Lymphocytes Percent Auto 24.4 % (20-40); Mean Corpuscular HGB Conc 32.8 g/dl (31.0-36.0); Mean Corpuscular Hemoglobin 20.7 pg (27.0-33.0); Monocytes Absolute Auto 0.5 X10*3/uL (0.1-1.2); Monocytes Percent Auto 8.4 % (2-11); NRBC Pct Auto 0.5 /100WBC (0.0-0.2); Neutrophils Absolute Auto 3.5 x10*3/uL (2.0-8.3); Neutrophils Percent Auto 59.3 % (45-73); Platelet Count 177 X10*3/uL (160-400); Red Blood Count 4.89 X10*6/uL (4.60-5.80); Red Cell Distribution Width 15.9 % (11.0-16.0); Retic HGB Equivalent 21.6 pg (30.0-35.0); Reticulocyte Percent 1.4 % (0.5-1.8); Reticulocytes Absolute 0.067 X10*6/uL (0.026-0.095); White Blood Count 5.9 X10*3/uL (4.8-10.8)
[2023-09-28 08:27] LABS: Anion Gap 10 (12-20); Blood Urea Nitrogen 19 mg/dL (9-16); Calcium 9.4 mg/dL (8.4-10.2); Carbon Dioxide 29 mmol/L (22-29); Chloride 105 mmol/L (96-108); Estimated Glomerular Filt Rate 46; Glucose Random 94 mg/dL (60-115); Iron 107 mcg/dL (45-160); Percent Iron Saturation 49 % (15-50); Potassium 3.9 mmol/L (3.3-5.1); Sodium 140 mmol/L (135-145); Total Iron Binding Capacity 220 mcg/dL (228-428); Unsaturated Iron Binding 113 ug/dL
[2023-09-28 08:44] LABS: Prostate Specific Antigen 0.75 ng/mL (<0.05-4.0)
[2023-09-28 08:46] LABS: Ferritin 631 ng/mL (20-250)
[2023-09-28 08:57] LABS: Folate 9.4 ng/mL (> or = 4.0); Vitamin B12 869 pg/mL (200-900)
== END 2023-09-28 07:22 | disposition home or self-care (01) ==
LOC: HO.LAB 07:21
PROVIDERS: Student in an Organized Health Care Education/Training Program; Urology; PCP Internal Medicine; Visit Provider Internal Medicine
DX: M1A.30X1 Chronic gout due to renal impairment, unspecified site, with tophus (tophi) (principal); N40.1 Benign prostatic hyperplasia with lower urinary tract symptoms; R35.0 Frequency of micturition; D64.9 Anemia, unspecified; Z12.5 Encounter for screening for malignant neoplasm of prostate
CPT/HCPCS: 36415; 80048; 82607; 82728; 82746; 83540; 84153; 84550; 85025; 85045

== ENCOUNTER 2023-10-05 15:05 | Outpatient (AMB) | payer MEDICARE, SELFPAY ==
[2023-10-05 15:18] VITALS: BP 100/64; PULSE 66; O2SAT 99; BMI 19.8
--- NOTE | 2023-10-05 15:18 | MHC.PC.OV ---
Vital Signs 10/05/23 15:18 Height 5 ft 4 in Weight 115 lb 6 oz BMI 19.8 BP 100/64 Blood Pressure Location Lt brachial Position Sitting Pulse 66 Pulse Source Pulse Oximeter Pulse Oximetry (%) 99 Oxygen Delivery Method Room Air Intake Visit Reasons: 3mth f/u Cattle [employer] Required: No Accompanied by: Self / Same As Patient Allergies penicillin G [Penicillin G] Allergy (Mild, Verified 10/05/23 15:18) DIFFICULTY BREATHING Tobacco use date assessed: 10/05/23 Fall risk assessment: No Falls in past year Last assessed Fall Risk: 10/05/23 Dental Screening Dental Screen Date: 10/05/23 Did you have a dental visit in the last 12 months?: Yes Did you have a dental problem in the last 6 months where you did not have access to dental care?: No Was dental information given to patient?: Patient has dentist HPI 3mth f/u HPI Details 88-year-old male with a history of thoracic spine compression fraction on narcotic pain medication having hypertension hypercholesterolemia BPH GERD coronary artery disease and chronic kidney disease last seen in 06/05/2023. Patient is here for follow-up. Patient follows up with Nephrology 09/04/2023 diagnosis of chronic kidney disease stage 3 due to hypertension on metoprolol Imdur. Patient did see Rheumatology also for the gout on allopurinol 200 mg once a day no flare-ups. Continue to monitor uric acid. As for the arthritis. Patient has also followed up with Cardiology in August moderately severe LAD disease low-dose aspirin high-intensity statin aggressive blood pressure control. As for the ascending aorta dilatation 12/04/2021 showing 4.1 x 4 cm and then 02/03/2023 at 4.3 cm. Advised to follow-up echocardiogram in 1 year. Patient did see Urology also nephrolithiasis on finasteride advised to get bladder ultrasound. Continue to monitor PSA. [facility] Medical History Anal lesion Left renal stone Pulmonary nodule Chondrocalcinosis Cholelithiasis Hypercholesterolemia Hypertension Compression fx, thoracic spine Anemia BPH (benign prostatic hyperplasia) GERD (gastroesophageal reflux disease) Chronic kidney disease (CKD) stage G3a/A1, moderately decreased glomerular filtration rate (GFR) between 45-59 mL/min/1.73 square meter and albuminuria creatinine ratio less than 30 mg/g Chronic kidney disease Gout Surgical History History of cataract surgery Family History Father No problems noted. Mother No problems noted. Social History Housing: House Alcohol intake: never Patient Tobacco Use Status: Former Tobacco user Tobacco use type: Cigarette e-Cigarette/Vaping Use: Never Used Second Hand Smoke Exposure: No Current occupational status: retired Current occupational exposures/hazards: No Cognitive needs: No Hearing needs: No Vision needs: No Questionnaire PHQ-9 Over the last 2 weeks, how often have you been bothered by any of the following problems? 1. Little interest or pleasure in doing things: not at all 2. Feeling down, depressed, or hopeless: not at all 3. Trouble falling or staying asleep, or sleeping too much: not at all 4. Feeling tired or having little energy: not at all 5. Poor appetite or overeating: not at all 6. Feeling bad about yourself - or that you are a failure or have let yourself or your family down: not at all 7. Trouble concentrating on things, such as reading the newspaper or watching television: not at all 8. Moving or speaking so slowly that other people could have noticed. Or the opposite - being so fidgety or restless that you have been moving around a lot more than usual: not at all 9. Thoughts that you would be better off or of hurting yourself in some way: not at all Total score: 0 Depression Screening Interpretation: Negative Depression Screening Done: Yes Source: Developed by Drs. Emory Hutchison, Zina Kumar, Placido Haynes and colleagues, with an educational from [employer]. Thrive Questionnaire Date Thrive assessed: 10/05/23 I am a: Patient What is your living situation today?: I have a steady place to live Within the past 12 months, did the food you bought not last and you didn't have the money to get more?: Never true Within the past 12 months, did you worry whether your food would run out before you got money to buy more?: Never true Do you have trouble paying for medicines?: No Do you have trouble getting transportation to medical appointments?: No Do you have trouble paying your heating and electricity bill?: No Do you have trouble taking care of your child, family member or friend?: No Do you have trouble with day-to-day activities such as bathing, preparing meals, shopping, managing finances, etc.?: No Are you currently unemployed and looking for a job?: No Are you interested in more education?: No Please select the resources that you would like help with: None Currently or been in a relationship where the following occur: No concerns reported THRIVE Score: 0 AUDIT C Alcohol Use Questionnaire (AUDIT-C) 1. How often do you have a drink containing alcohol?: Never 2. How many drinks containing alcohol do you have on a typical day when you are drinking?: 1 or 2 (0) 3. How often do you have six or more drinks on one occasion?: Never Total Score: 0 BELÉN-7 AMB Questionnaire BELÉN-7 Date BELÉN - 7 assessed: 10/05/23 Feeling nervous, anxious, or on edge: 0 = Not at all Not being able to stop or control worryin = Not at all Worrying too much about different things: 0 = Not at all Trouble relaxin = Not at all Being so restless that it is hard to sit still: 0 = Not at all Becoming easily annoyed or irritable: 0 = Not at all Feeling afraid as if something awful might happen: 0 = Not at all Total BELÉN-7 score (0-4 normal; 5-9 mild; 10-14 moderate; 15-21 severe): 0 Source: Developed by Drs. Emory Hutchison, Zina Kumar, Placido Haynes and colleagues, with an educational from [employer]. Physical exam (Primary Care) Vital Signs: Last Vital Signs Pulse 66 10/05/23 15:18 BP 100/64 10/05/23 15:18 Pulse Ox 99 10/05/23 15:18 Oxygen Delivery Method Room Air 10/05/23 15:18 BMI result Body Mass Index 19.8 Tobacco/Smoking Status: Tobacco use Status Tobacco use date assessed 10/05/23 10/05/23 15:20 Patient Tobacco Use Status Former Tobacco user 10/05/23 15:20 Tobacco use type Cigarette 10/05/23 15:20 e-Cigarette/Vaping Use Never Used 10/05/23 15:20 PHQ-9: PHQ-9 Score PHQ-9: Total score 0 10/05/23 15:31 Depression Screening Interpretation: Negative Thrive Assessment: Date of Thrive Assessment Date Thrive assessed 10/05/23 10/05/23 15:20 Currently or been in a relationship where the following occur: No concerns reported Const General: alert; No acute distress Eyes Conjunctivae: conjunctivae normal Resp Auscultation: clear to auscultation bilaterally Cardio Rate: regular rate Rhythm: regular rhythm GI Inspection: Yes normal to inspection Extrem General: Yes normal to inspection and No edema Assessment and Plan Assessment & Plan (1) Compression fx, thoracic spine: Comment: T12 compression fracture 2012 MRI Code(s): S22.000A - Wedge compression fracture of unspecified thoracic vertebra, initial encounter for closed fracture Qualifiers: Encounter type: subsequent encounter Thoracic vertebra fracture level: T12 Fracture healing: with routine healing Qualified Code(s): S22.080D - Wedge compression fracture of T11-T12 vertebra, subsequent encounter for fracture with routine healing Plan: Narcotic pain meds: Is being prescribed with the understanding that these medications are potentially addictive and should be used only when absolutely necessary and must always be secured. Any remaining pills should be safely disposed off appropriately. Patient is advised that narcotics can impaired judgment and one should not drive or operate heavy machinery while taking these medications. Never share these medications with anybody and do not leave them unattended. They will not be replaced under any circumstances. (2) Hypertension: Code(s): I10 - Essential (primary) hypertension Qualifiers: Hypertension type: essential hypertension Qualified Code(s): I10 - Essential (primary) hypertension Plan: Continue with blood pressure medication. Decrease salt intake and exercise continue with isosorbide mononitrate 30 mg once a day metoprolol 25 mg once a day (3) Hypercholesterolemia: Code(s): E78.00 - Pure hypercholesterolemia, unspecified Plan: Avoid fried foods, chicken skin, eggs, butter margarine, pastries and meat. Be it pork or beef they have a lot of cholesterol LDL goal of less than 70 and triglyceride of less than 150 on atorvastatin 40 mg once a day (4) GERD (gastroesophageal reflux disease): Code(s): K21.9 - Gastro-esophageal reflux disease without esophagitis Qualifiers: Esophagitis presence: without esophagitis Qualified Code(s): K21.9 - Gastro-esophageal reflux disease without esophagitis Plan: Avoid the foods that causes that usually spicy foods, tomato products, juices, coffee, soda and foods that your sensitive to. After eating do not lie down, allow 3-4 hours before in lie down. And keep the head of bed above 30 degrees to avoid the acid from going up. (5) Gout: Code(s): M10.9 - Gout, unspecified Qualifiers: Gout site: unspecified site Gout etiology: due to renal impairment Chronicity: chronic Presence of tophus: with tophus Qualified Code(s): 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, unspecified site, with tophus (tophi) Plan: Continue with allopurinol and will continue to monitor uric acid (6) Coronary artery disease: Comment: November 2021 moderate stenosis LAD severe stenosis 1st diagonal Code(s): I25.10 - Atherosclerotic heart disease of kake coronary artery without angina pectoris Plan: Control the cholesterol, weight, blood pressure, continue with aspirin 81 mg once a day (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 (9) Weight loss: Code(s): R63.4 - Abnormal weight loss Orders: Orders XR chest 2V Today R63.4 - Abnormal weight loss Medications: New cyproheptadine 4 mg PO BEDTIME 30 tabs 3RF R63.4 - Abnormal weight loss Coding Level of Care Code Est Pt Level 4 (97141) Diagnoses Compression fracture of T12 vertebra with routine healing, subsequent encounter S22.080D Encounter type: subsequent encounter Thoracic vertebra fracture level: T12 Fracture healing: with routine healing Essential hypertension I10 Hypertension type: essential hypertension Hypercholesterolemia E78.00 Gastroesophageal reflux disease without esophagitis K21.9 Esophagitis presence: without esophagitis 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
== END 2023-10-05 16:48 | disposition home or self-care (01) ==
PROVIDERS: PCP Internal Medicine; Visit Provider Internal Medicine
DX: I77.810 Thoracic aortic ectasia (principal); S22.080D Wedge compression fracture of T11-T12 vertebra, subsequent encounter for fracture with routine healing; I12.9 Hypertensive chronic kidney disease with stage 1 through stage 4 chronic kidney disease, or unspecified chronic kidney disease; N18.32 Chronic kidney disease, stage 3b; E78.00 Pure hypercholesterolemia, unspecified; K21.9 Gastro-esophageal reflux disease without esophagitis; M1A.30X1 Chronic gout due to renal impairment, unspecified site, with tophus (tophi); I25.10 Atherosclerotic heart disease of native coronary artery without angina pectoris; R63.4 Abnormal weight loss
CPT/HCPCS: 99214

== ENCOUNTER 2023-11-17 08:51 | Outpatient (AMB) | payer MEDICARE, SELFPAY ==
--- NOTE | 2023-11-17 09:40 | AM.OFFVISNUR ---
Intake Visit Reasons: FLU shot Allergies penicillin G [Penicillin G] Allergy (Mild, Verified 10/05/23 15:18) DIFFICULTY BREATHING Office Procedures Flu Questionnaire Does the patient have a severe egg allergy?: No Does the patient have severe life threatening allergies?: No Does the patient have a fever or illness today?: No Has the patient ever had Guillain-Ethel Syndrome?: No Has the patient ever had any past reaction to a flu shot?: No Assessment & Plan Assessment & Plan Orders: Orders Influenza [id number] Immunization Today Z23 - Encounter for immunization Medications: New Fluarix Triv [id number] (PF) (flu vacc [id number] 6mos up(PF)) 0.5 mL IM ONCE 0.5 mL 0RF NS Z23 - Encounter for immunization
== END 2023-11-17 09:48 | disposition home or self-care (01) ==
PROVIDERS: PCP Internal Medicine; Visit Provider Internal Medicine
DX: Z23 Encounter for immunization (principal)

== ENCOUNTER 2023-11-17 08:51 | Outpatient (REF) | payer MEDICARE, SELFPAY ==
--- NOTE | ~2023-11-17 | XR_ITS ---
EXAMINATION: XR CHEST 2 VIEWS CLINICAL INFORMATION: Abnormal weight loss R63.4. COMPARISON: XR Chest 11/17/2023 TECHNIQUE: 2 views of the chest were obtained. FINDINGS: Tortuous appearance of the aorta is again noted. There is a severe compression deformity of T12 which is unchanged from prior studies and scoliotic curvature at the thoracolumbar junction. Lungs are well-expanded. No focal opacities are seen. No pleural effusion or pneumothorax. Cardiac mediastinal contours are unchanged. XR/XR chest 2V IMPRESSION: Stable chest. Electronically signed by: Edison Pepper MD 01/26/2024 11:41 AM [facility]
== END 2023-11-17 08:52 | disposition home or self-care (01) ==
LOC: HO.XRAY 08:51
PROVIDERS: PCP Internal Medicine; Visit Provider Internal Medicine
DX: R63.4 Abnormal weight loss (principal); Z23 Encounter for immunization
CPT/HCPCS: 71046; 90471; 90656

== ENCOUNTER 2023-12-29 14:23 | Outpatient (REF) | payer MEDICARE, SELFPAY ==
--- NOTE | ~2023-12-29 | XR_ITS ---
EXAMINATION: XR CHEST CLINICAL INFORMATION: COVID-19 COMPARISON: X-ray dictated November 17, 2023 TECHNIQUE: 2 views of the chest were obtained. FINDINGS: Pulmonary reticular pattern. No consolidation, pleural effusion or pneumothorax. Cardiomediastinal silhouette demonstrates a tortuous and calcified thoracic aorta. S-shaped curvature of the thoracolumbar spine. Multilevel thoracic and upper lumbar spondylosis. Old compression fracture deformity resulting in 90% volume loss lower thoracic vertebra versus L1 vertebra. Osteopenia versus osteoporosis. XR/XR chest 2V IMPRESSION: No acute airspace disease. Stable chest. Electronically signed by: Kishan Clemons MD 12/30/2023 08:00 AM [facility]
== END 2023-12-29 14:24 | disposition home or self-care (01) ==
LOC: HO.XRAY 14:23
PROVIDERS: PCP Internal Medicine; Visit Provider Internal Medicine
DX: U07.1 COVID-19 (principal)
CPT/HCPCS: 71046

== ENCOUNTER → 2023-12-29 14:45 | Outpatient (BNV) | payer MEDICARE, SELFPAY | PROVIDERS: PCP Internal Medicine; Visit Provider Radiology Diagnostic Radiology | DX: U07.1 COVID-19 (principal) | CPT/HCPCS: 71046 ==

== ENCOUNTER 2024-01-03 12:12 | Outpatient (REF) | payer MEDICARE, SELFPAY ==
--- NOTE | ~2024-01-03 | US_ITS ---
EXAMINATION: US PELVIS LIMITED (BLADDER) CLINICAL INFORMATION: Poor urinary stream. COMPARISON: None available. TECHNIQUE: Real-time imaging of the bladder. FINDINGS: BLADDER: The bladder is only partially filled with a 7 mm thick mildly trabeculated wall. Bilateral ureteral jets are demonstrated. Prevoid bladder volume is 135 mL. Postvoid bladder volume is 11 mL. PROSTATE: Prostate measures 3.0 x 4.1 x 3.8 cm for a volume of 24 mL, normal in size. US/US bladder IMPRESSION: Mildly trabeculated bladder wall with 11 mL postvoid residual. Normal size prostate. Electronically signed by: Fran Franklin MD 01/18/2024 01:28 PM EST
== END 2024-01-03 12:13 | disposition home or self-care (01) ==
LOC: HO.US 12:12
PROVIDERS: PCP Internal Medicine; Visit Provider Urology
DX: R39.12 Poor urinary stream (principal); N40.1 Benign prostatic hyperplasia with lower urinary tract symptoms; R35.0 Frequency of micturition
CPT/HCPCS: 76857

== ENCOUNTER 2024-01-06 10:19 | Outpatient (AMB) | payer MEDICARE, SELFPAY ==
--- NOTE | 2024-01-06 10:29 | A.OFFVIS_ITS ---
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 He is a patient of Dr Urbina. He is seen for the following urologic conditions. - lower urinary tract symptoms - nephrolithiasis Six-month follow-up Bladder emptying well PSA remains low Monotherapy with finasteride Low PVR PSA 10/08 0.8 Bladder ultrasound 24 g prostate 12 month follow-up Lower Urinary Tract Symptoms: Current visit is for further symptom evaluation of, lower urinary tract symptoms, predominate obstructive symptoms. Current treatment includes finasteride - prior therapy tamsulosin with dizziness, prior alfuzosin which was effective Prostate Symptom Score 5/20 , Moderate (9-19), Bother 3. Symptoms include 5/20 , weak stream, nocturia (>2), and are progressing. Results from testing include uroflow was performed No transrectal ultrasound No renal/bladder us No Testing at next visit will include bladder scan and ultrasound Treatment plan continue with current medications. Nephrolithiasis Imaging - 11/05 renal ultrasound bilateral renal cysts up to 3.5 cm, bilateral small stones up to 4 mm PFSH Medical History Anal lesion Left renal stone Pulmonary nodule Chondrocalcinosis Cholelithiasis Hypercholesterolemia Hypertension Compression fx, thoracic spine Anemia BPH (benign prostatic hyperplasia) GERD (gastroesophageal reflux disease) Chronic kidney disease (CKD) stage G3a/A1, moderately decreased glomerular filtr ation rate (GFR) between 45-59 mL/min/1.73 square meter and albuminuria creatinine ratio less than 30 mg/g Chronic kidney disease Gout Surgical History History of cataract surgery Family History Father No problems noted. Mother No problems noted. Social History (Reviewed 01/06/24 @ 10:32 by NICOLAS Tovar Housing: House Alcohol intake: never Patient Tobacco Use Status: Former Tobacco user Tobacco use type: Cigarette e-Cigarette/Vaping Use: Never Used Second Hand Smoke Exposure: No Current occupational status: retired Current occupational exposures/hazards: No Cognitive needs: No Hearing needs: No Vision needs: No Review of Systems Const Denies chills and Denies fever(s) Card Reports no additional complaints and Denies syncope Resp Denies cough GI Denies abdominal pain and Denies heartburn Reports as per HPI and Denies change in libido Neuro Denies syncope Psych Denies change in libido Endo Denies change in libido Physical Exam Const General: cooperative, healthy appearing, comfortable and no acute distress Orientation/consciousness: patient oriented x3 HEENT Face and sinus: Yes normal facial exam Mouth: moist mucous membranes Neck Neck: Yes normal visual inspection, Yes full ROM and Yes trachea midline Chest Chest palpation & inspection: normal inspection of the chest Resp Effort & Inspection: normal respiratory effort, able to speak in complete sentences and no respiratory distress GI Inspection: Yes normal to inspection Back/Spine/Pelvis Cervical Spine: normal cervical lordosis Thoracic/Lumbar Spine: thoracic and lumbar spine normal to inspection Skin General skin exam: no rashes or lesions noted Neuro General: patient oriented x3, gait normal, tone normal and moves all extremities Extrem General: Yes normal to inspection and Yes capillary refill normal Assessment & Plan Assessment & Plan (1) BPH (benign prostatic hyperplasia): Code(s): N40.0 - Benign prostatic hyperplasia without lower urinary tract symptoms Category: Medical Qualifiers: Lower urinary tract symptom presence: symptoms present Lower urinary tract symptom detail: urinary frequency Qualified Code(s): N40.1 - Benign prostatic hyperplasia with lower urinary tract symptoms; R35.0 - Frequency of micturition (2) Nocturia associated with benign prostatic hyperplasia: Code(s): N40.1 - Benign prostatic hyperplasia with lower urinary tract symptoms; R35.1 - Nocturia Category: Medical Plan Twelve month follow-up Patient Instructions: Imaging studies, laboratory and physical exam results were discussed and reviewed in detail. No major barriers to patient understanding were identified. An opportunity to ask questions regarding the treatment plan was provided. All questions were answered. The patient expressed understanding and agreement with the above treatment plan. The patient is aware they should contact our office by phone for worsening of their current condition or the appearance of new urologic symptoms. Compliance is encouraged with any medications and followup testing that is ordered. It is a privilege to participate in the urologic care of your patient. If you have any questions or concerns regarding treatment for the above conditions, or other urologic issues, please do not hesitate to contact me. The office telephone contact is [phone]. This note is constructed using voice recognition software. While every effort has been made to ensure accuracy building carpenter errors may have been included. Yours sincerely, Dr Aramis Ruiz MD, [facility] - Urology Providers of Expert, Compassionate Care for the Genitourinary System Coding Level of Care Code Est Pt Level 3 (16315) Diagnoses Benign prostatic hyperplasia with urinary frequency N40.1; R35.0 Lower urinary tract symptom presence: symptoms present Lower urinary tract symptom detail: urinary frequency Nocturia associated with benign prostatic hyperplasia N40.1; R35.1
== END 2024-01-06 11:18 | disposition home or self-care (01) ==
PROVIDERS: PCP Internal Medicine; Visit Provider Urology
DX: N40.1 Benign prostatic hyperplasia with lower urinary tract symptoms (principal); R35.0 Frequency of micturition; R35.1 Nocturia
CPT/HCPCS: 99213

== ENCOUNTER → 2024-01-06 13:39 | Outpatient (REF) | payer MEDICARE, SELFPAY ==
--- NOTE | 2024-01-06 13:42 | CA_ITS ---
Transthoracic Echocardiogram Patient (Last, First, Middle): Nickolas Frias Van Gender: Male Date of : 1935 Age: 88 Procedure Date: 01/06/2024 Procedure Type: Transthoracic Echocardiogram Location: OP Height: 160.02 cm Weight: 56.7 kg BSA: 1.58 m2 Heart Rate: bpm BP: 140 / 80 mmHg Agricultural Equipment Sales Manager: RAISA Referring MD: Joann Leone SHEARING SHED WORKER-Elías Strike Operations Officer: Puma Gay MD Symptoms: I25.10 - Atherosclerotic heart disease of [place] coronary artery without... Study Quality: Adequate ECG Rhythm: Sinus Conclusions: - 1. Normal LV ejection fraction 55-60% with grade 1 diastolic dysfunction 2. Mild aortic regurgitation 3. Normal RV systolic pressure 4. 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 No gross pericardial effusion Findings Left Ventricle Normal left ventricular size, thickness, and systolic function. The visually estimated ejection fraction is between 55-60%. Spectral Doppler is indicative of an impaired relaxation filling pattern. E/E prime ratio is <8, consistent with normal filling pressures. Evidence suggests grade I (mild) diastolic dysfunction. Wall Motion Rest Echo Findings The basal inferior segment is akinetic. All other scored wall segments showed normal motion. Right Ventricle Normal right ventricular cavity size and systolic function. Atria Both atria are normal in size. There is no evidence of interatrial shunt. Aortic Valve Normal aortic valve structure and function. There is no aortic valve stenosis. There is mild aortic valve regurgitation. Mitral Valve There is mild anterior and posterior mitral leaflet thickening. There is trace mitral valve regurgitation. There is no mitral valve stenosis. Pulmonic Valve The pulmonic valve is likely normal. There is trace pulmonic valve regurgitation. Tricuspid Valve Normal tricuspid valve structure. There is mild tricuspid valve regurgitation. The right ventricular systolic pressure is normal. The right ventricular systolic pressure is 28 mmHg. Normal right atrial pressure. There is no evidence of pulmonary hypertension. Great Vessels The pulmonary artery was not well visualized. There is mild dilatation of the ascending aorta measuring 4.30 cm. Small plaque is seen in the sino tubular ridge. Venous The inferior vena cava is normal in size and collapses greater than 50% with inspiration. Pericardium/Pleural There is no evidence of pericardial effusion. Measurements 2D Linear Measurements IVSd: 1.07 0.6-0.9/0.6-1.0 cm LVIDd: 3.97 3.9-5.3/4.2-5.9 cm LVIDd Index: 2.51 2.4-3.2/2.2-3.1 cm/m2 LVIDs: 2.28 2.0-3.6 cm LVPWd: 0.97 0.7-1.1 cm LA Diam: 3.20 2.7-3.8/3.0-4.0 cm LAIDs Index: 2.03 1.5-2.3 cm/m2 LV Mass: 160.69 67-162/88-224 g LV Mass Index: 101.70 43-95/49-115 g/m2 LVOT Diam: 2.00 3.0+(-)1.3 cm 2D Systolic Function EF 4C: 57.70 >55% EF 2C: 57.50 >55% EF BiP: 56.90 >55% Mitral Valve MV Pk E: 0.33 MV PK A: 0.51 MV Decel Time: 421.00 E/A: 0.70 E'Lateral: 6.42 E'Medial: 4.68 E/E' Med: 7.10 E/E' Lat: 5.20 PHT: 123.00 MVA PHT: 1.79 Decel [place]: 0.79 Aortic Valve AoV Pk Titi: 1.35 AoV Mn Titi: 1.00 AoV VTI: 0.30 AoV Pk Grad: 7.00 Aov Mn Grad: 4.00 CURTIS Cont.VTI: 1.89 LVOT LVOT Pk Titi: 0.83 LVOT Mn Titi: 0.55 LVOT VTI: 0.18 LVOT Pk Grad: 3.00 LVOT Mn Grad: 1.00 LVOT Diam: 2.00 LVOT Area: 3.14 Diastolic Function MV Pk E: 0.33 MV Pk A: 0.51 E/A: 0.70 E'Medial: 4.68 E/E' Med: 7.10 E' Laterial: 6.42 E/E' Lat: 5.20 Right Ventricle TAPSE (mm): 22.80 TVS' Titi: 10.60 Tricuspid Valve TR Pk Titi: 2.52 TR Pk Grad: 25.00 RA Press: 3.00 RVSP: 28.00 Great Vessels Aorta Sinus of Valsalva: 3.68 2.0-3.[address] [place]: 2.20 1.7-3.4 cm Ao Asc: 4.30 2.1-3.4 cm Updated in Other Vendor System with Status of Final Puma Gay MD electronically signed on 01/07/2024 3:52:40 PM with status of Final
== END ==
LOC: HO.CARD 13:39
PROVIDERS: PCP Internal Medicine; Visit Provider Nurse Practitioner Family
DX: I25.10 Atherosclerotic heart disease of native coronary artery without angina pectoris (principal); I77.810 Thoracic aortic ectasia; N40.1 Benign prostatic hyperplasia with lower urinary tract symptoms; R35.0 Frequency of micturition; R35.1 Nocturia
CPT/HCPCS: 93306; 99212

== ENCOUNTER → 2024-01-06 13:42 | Outpatient (BNV) | payer MEDICARE, SELFPAY | PROVIDERS: PCP Internal Medicine; Visit Provider Internal Medicine Cardiovascular Disease | DX: I25.10 Atherosclerotic heart disease of native coronary artery without angina pectoris (principal); I51.89 Other ill-defined heart diseases | CPT/HCPCS: 93306 ==